=== PATIENT | female | born 1945 | race Caucasian/White ===

== ENCOUNTER 2025-09-03 07:59 | Emergency (ER) | payer MEDICARE ==
[~2025-09-03] VITALS: Ht 160 cm; Wt 61.2 kg
[2025-09-03 08:00] VITALS: BP 143/73; PULSE 63; RESP 16; TEMP 97.9; O2SAT 98
[2025-09-03 08:23] LABS: LEUKOCYTE ESTERASE ,URINE NEGATIVE (Neg); NITRITES, URINE NEGATIVE (Neg); OCCULT BLOOD,URINE NEGATIVE (Neg)
[2025-09-03 08:30] LABS: UA COLLECTION TYPE CLN CATCH MIDSTREAM
--- NOTE | 2025-09-03 08:40 | Physician Documentation ---
History of Present Illness ~ Chief Complaint: Urinary Symptoms Stated Complaint: URINARY SYMPTOMS Time Seen by MD: 08:28 [facility] 80-year-old female presents to the ED with a complaint of one day of burning and itching in the vaginal area. He is that it cason more when urinating. Denies any fevers or nausea vomiting. Denies any back pain. Medication Reconciliation Allergies: Coded Allergies: No Known Allergies (Unverified , 09/03/25) Review of Systems All Other Systems at this time: Reviewed and Negative ROS As stated above in the HPI, otherwise all systems are reviewed and negative. Physical Exam Vital Signs: Temperature: 97.9, Source: Oral, Heart Rate: 63, Respiratory Rate: 16, BP: 143/73, Pulse Oximetry: 98, Weight: 61.200 Oxygen Flow Rate: 0 Physical Exam General: Alert, no apparent distress. HEENT: PERRL, EOMI, no injection, moist mucous membranes. Neck: Full range of motion. Respiratory: Lungs clear, no respiratory distress. Chest: No accessory muscle use. Cardiovascular: Regular rate and rhythm, no murmurs. Gastrointestinal: Soft, nontender, nondistended. Bowels sounds present. Extremities: Normal range of motion, no deformity. Neurologic: Oriented x4. Psychiatric: Normal mood and affect. Skin: Normal color, warm and dry. No edema, no ecchymosis. Progress Results/Orders Results/Orders Completed Orders - KHANH PRICE NP Fluconazole Tablet (Diflucan Tablet) (09/03/25 08:40) Medications Received in ER Medications (Trade) Dose Ordered Sig/[place] Route PRN Reason Start Time Stop Time Status Last Admin Dose Admin (Diflucan tablet) 150 mg ONCE ONCE PO 09/03/25 08:40 09/03/25 08:42 DC 09/03/25 08:57 150 MG Vital Signs 09/03/25 09/03/25 08:00 09:16 Temp 97.9 Pulse 63 Resp 16 B/P (MAP) 143/73 Pulse Ox 98 O2 Flow Rate 0 Laboratory Tests Test 09/03/25 08:06 Urine Specimen Description Cln catch midstream Urine Color Yellow Urine Clarity Clear Urine pH 6.5 Urine Specific [place] <=1.005 Urine Protein Negative Urine Glucose (UA) Negative Urine Ketones Negative Urine Occult Blood Negative Urine Nitrite Negative Urine Bilirubin Negative Urine Urobilinogen 0.2 Urine Leukocyte Esterase Negative Urine Culture Indicated Not ind Volume Urine Centrifuged 10 ml Urine Comment Medical Decision Making Additional information obtaine: old records Findings Urinalysis was playing for any WBCs nitrites or bacteria. Based on patient's complaint more suspicious of a vaginal yeast infection going to treat her empirically in the ED have her follow up in the outpatient setting. Urinary Diff Dx:Considerations: Include: AAA, , Aortic dissection, Appendicitis, Bowel obstruction, Cholelithiasis, Choleangitis, DJD, Ectopic , Hepatitis, HNP, Impaction, Intrauterine , Musculoskeletal pain, Ovarian torsion, Pancreatitis, PID, Post-Op complication, Pyelonephritis, Renal failure, Strain, Urinary Obstruction, Urolithiasis, Urinary retention, UTI, Vaginitis, Other Genital Diff Dx:Considerations: Unlikely: -Complete, - Incomplete, -Inevitable, Ablortion-Missed, -Threatened, Abruptio placentae, Bartholin abscess, Bartholin cyst, Blood loss anemia, Constipation, Cervicitis, Dsymenorrhea, Ectopic , Foreign body, Hormonal, Hidradenitis suppurativa, Intrauterine , Menorrhagia, Menometrorrhagia, Menstrual bleeding, Myomatous uterus, Perianal abscess, Physiologic discharge, Pinworms, PID, Placenta previa, , Precipitous Hct, Trauma, UTI, Vaginitis(osis)-Atrophic, Vaginitis, Vaginitis(osis)-Bacterial, Vaginitis(osis)- Candidal, Vaginitis(osis)-Contact, Vaginitis(osis)-Herpes, Vaginitis(osis)- Trich., Other Departure Disposition: HOME / SELF CARE / HOMELESS Impression: Primary Impression: Acute urinary tract infection Condition: Stable Discharge Instructions: Vaginal Yeast Infection, Adult Referrals: NO PRIMARY CARE PROVIDER (PCP) Education Educated regarding: diagnosis Signature Scribe Signature: d Attestation: Scribed for Khanh Price Np by Khanh Arreaga NP . 09/03/25 13:55 KHANH PRICE NP Sep 03, 2025 08:40
== END 2025-09-03 09:20 | disposition home or self-care (01) ==
LOC: ER 08:00
DX: N39.0 Urinary tract infection, site not specified (principal)
CPT/HCPCS: 81003; 99283